=== PATIENT | male | born 2000 | race Hispanic/Latino ===

== ENCOUNTER 2022-03-22 08:16 | Emergency (ER) | payer SELFPAY ==
[2022-03-22 08:19] VITALS: BP 134/86; PULSE 81; RESP 14; TEMP 36.7; O2SAT 100; BMI 28.3
--- NOTE | 2022-03-22 09:11 | EX.ED.DYSGE1 ---
HPI History of Present Illness Chief Complaint: Ear Problem Informant: patient Narrative Narrative: Patient is a 22-year-old male no past medical history presenting with left ear pain and swelling. States been going on for 3 days. He notes night before he was cleaning his ear with a Q-tip but denies any trauma with it. States he feels that his neck and jaw is swollen and painful as well. Denies any drainage. States sometimes sound feels far away but other times it pops and feels louder. Denies any nasal congestion. Denies any sick contacts. Denies any recent swimming. No other complaints at this time. Has taken Aleve with some relief of his symptoms. Patient is Divehi speaking and has an acquaintance to help translate. He is here for work from [place]. [facility] Medical History no medical history Home Medications ciprofloxacin HCl 0.2 % ear drops in a dropperette 5 drp EACH EAR Q12H 7 days #14 ea 03/22/22 [Rx Last Taken Unknown] ibuprofen 600 mg tablet 600 mg PO Q6H PRN PRN Pain Score 1-10/10 #20 tabs 03/22/22 [Rx Last Taken Unknown] Allergy/AdvReac Type Severity Reaction Status Date / Time No Known Allergies Allergy Verified 03/22/22 08:22 Social History Smoking Status: Unknown if ever smoked ROS ROS ED Constitutional Constitutional ED: Denies chills or fever(s) Eyes Eyes: Denies change in vision ENT ENT ED: Reports ear pain left; Denies rhinorrhea or sore throat Cardiovascular Cardiovascular: Denies chest pain or palpitations Respiratory/Chest Respiratory/Chest: Denies cough Gastrointestinal Gastrointestinal: Denies nausea or vomiting Musculoskeletal Musculoskeletal: Denies myalgias Integumentary Denies rash Neurologic Neurologic: Denies headache(s) or weakness EXAM Physical Exam Const Vital Signs: 03/22/22 08:19 Temperature 98.0 F Temperature Source Temporal Pulse Rate 81 Respiratory Rate 14 Blood Pressure 134/86 H Blood Pressure Mean 102 Pulse Ox 100 Oxygen Delivery Method Room Air Positive well nourished and well developed General Appearance ED: well developed and NAD HEENT Reports moist mucous membranes HEENT Narrative: Scarred/retracted right tympanic membrane. Normal right ear canal. Left panic membrane is normal, pearly nagy with no perforation appreciated. There is white discharge noted in the left ear canal with associated edema of the ear canal. No deformity or significant tenderness of the pinna. No mastoid tenderness or redness. Normal nasal discharge or congestion appreciated. Normal oropharynx. Normal dentition. Eyes PERRL and EOMs intact bilaterally Neck supple Neck Narrative: Mild left anterior cervical chain lymphadenopathy present Chest Wall inspection of chest normal Resp normal respiratory effort and clear to auscultation bilaterally Cardio regular rate, regular rhythm and no murmurs GI non-tender and non-distended Extremity normal to inspection Neuro oriented x3 Motor Exam: Negative for general weakness Psych mental status grossly normal Skin no rashes or lesions noted and no wounds MDM MDM MDM Narrative Medical decision making narrative: Patient is evaluated for 3 days of ear pain. Patient peers nontoxic no acute distress. Vital signs are normal. Physical exam consistent with otitis externa. Due to the swelling and earwick will be placed as well as Cipro drops given. Patient is given Motrin for pain control. Discharged with antibiotic drops as well as Motrin. [facility] with [facility] as he does not have a primary care doctor and is only here transiently for work. Given return precautions to the emergency room. Patient verbalizes agreement understand with his plan. Is given follow-up with ENT if symptoms significantly worsen. Discharge Plan Triage Chief Complaint: Ear Problem ED Provider: Jahaira Diaz Dx/Rx/DC Orders Clinical Impression: Acute otitis externa of left ear Instructions: ED External Ear Infection (Adult) Prescriptions: New ibuprofen 600 mg tablet 600 mg PO Q6H PRN PRN (Reason: Pain Score 1-10/10) Qty: 20 0RF ciprofloxacin HCl 0.2 % dropperette 5 drp EACH EAR Q12H 7 Days Qty: 14 0RF Primary Care Provider: Care Physician,No Primary Referrals: Oni Duncan MD [STAFF PHYSICIAN] - (If no improvement ) Care Physician,No Primary [Primary Care Provider] - [facility] [NON-STAFF] - As Needed Print Language: Divehi Disposition Disposition: Home, Self Care
[2022-03-22] MEDS: Ibuprofen 600 MG Tablet PO (09:36)
[2022-03-22 09:38] VITALS: BP 124/83; PULSE 72; RESP 16
[2022-03-22] MEDS: Ciprofloxacin 0.3% 2.5ml Bottle 2 DRP LEFT EAR (10:44)
== END 2022-03-22 10:46 | disposition home or self-care (01) ==
PROVIDERS: Emergency Provider Emergency Medicine; Visit Provider Emergency Medicine
DX: H60.92 Unspecified otitis externa, left ear (principal)
CPT/HCPCS: 99283